=== PATIENT | female | born 1975 | race Two or more races ===

== ENCOUNTER 2023-04-01 00:28 | Emergency (ER) | payer MEDICAID, OTHER ==
[~2023-04-01] VITALS: Ht 180.3 cm; Wt 128.0 kg
[2023-04-01 01:03] VITALS: BP 156/85; PULSE 70; RESP 18; O2SAT 96
[2023-04-01] MEDS ORDERED: IBUP1TAB5 PO (02:28)
[2023-04-01] MEDS ORDERED: HYDROcodone-ACET 5/325MG TAB PO ONE (02:30)
== END 2023-04-01 04:37 | disposition home or self-care (01) ==
LOC: ER 00:28
DX: S62.512A Displaced fracture of proximal phalanx of left thumb, initial encounter for closed fracture (principal); W18.09XA Striking against other object with subsequent fall, initial encounter; Y93.89 Activity, other specified; Y92.89 Other specified places as the place of occurrence of the external cause; Y99.8 Other external cause status
CPT/HCPCS: 29125; 73130